=== PATIENT | female | born 1935 | race Caucasian/White ===

== ENCOUNTER 2016-09-07 10:58 | Inpatient (IN) | payer MEDICARE, OTHER ==
[~2016-09-07] VITALS: Ht 156.2 cm; Wt 56.1 kg
[~2016-09-07 10:58] MED LIST: ALBU8.5H3 INH; LEVO50TA5 PO; PROP150T2 PO; SIMV10TA3 PO
[2016-09-07] MEDS ORDERED: BUPIVACAINE/PF-EPI 0.5% 1:200K ONE (11:49)
[2016-09-07] MEDS ORDERED: BACITRACIN OINT 500U/GM, 15 GM ONE (11:49)
[2016-09-07] MEDS ORDERED: BACITRACIN 50,000 UNIT ONE (11:50)
[2016-09-07] MEDS ORDERED: THROMBIN 5,000 UNIT VIAL TP ONE (11:50)
[2016-09-07] MEDS ORDERED: NEOSPORIN OINT, 15GM ONE (12:00)
[2016-09-07] MEDS ORDERED: FENTANYL PF 250 MCG/5ML ONE (13:05)
[2016-09-07] MEDS ORDERED: morphine SULFATE 10 MG/ML, 1ML IVPush PRN (13:30)
[2016-09-07] MEDS ORDERED: TEMPLATE NON-FORMULARY MED. (Albuterol Sulfate (Proair Hfa) 1 PUFF) INH SCH (13:30)
[2016-09-07] MEDS ORDERED: ONDANSETRON 2MG/ML, 2ML IVPush PRN ×2 (13:30→14:00)
[2016-09-07] MEDS ORDERED: PHARMACY MAY ADJ FOR RENAL FX MC PRN (13:30)
[2016-09-07] MEDS ORDERED: MAGNESIUM HYDROXIDE 8%, 30ML UDC PO PRN (13:30)
[2016-09-07] MEDS ORDERED: DIPHENHYDRAMINE 50 MG/ML, 1ML IVPush PRN (13:30)
[2016-09-07] MEDS ORDERED: BISACODYL 10 MG SUPP PR PRN (13:30)
[2016-09-07] MEDS ORDERED: PROPAFENONE 150 MG TABLET PO SCH (13:30)
[2016-09-07] MEDS ORDERED: METHOCARBAMOL 750 MG TABLET PO PRN (13:30)
[2016-09-07] MEDS ORDERED: SENNA/DOCUSATE TABLET PO PRN (13:30)
[2016-09-07] MEDS ORDERED: OXYcodone 5 MG/5 ML ORAL.SOL UDC PO PRN (14:00)
[2016-09-07] MEDS ORDERED: ALBUTEROL SULFATE 2.5 MG/3 ML NPPB PRN (14:00)
[2016-09-07] MEDS ORDERED: METOPROLOL 1 MG/ML, 5ML IV PRN (14:00)
[2016-09-07] MEDS ORDERED: EPHEDRINE 50 MG/ML, 1ML IVPush PRN (14:00)
[2016-09-07] MEDS ORDERED: LABETALOL 5MG/ML, 20ML IV PRN (14:00)
[2016-09-07] MEDS ORDERED: ACETAMINOPHEN 325 MG TABLET PO PRN (14:00)
[2016-09-07] MEDS ORDERED: hydrALAzine 20 MG/ML, 1ML IV PRN (14:00)
[2016-09-07] MEDS ORDERED: FENTANYL PF 100 MCG/2ML ONE (15:40)
[2016-09-07] MEDS ORDERED: ACETAMINOPHEN 650 MG/20.3 ML UDC ONE (15:40)
[2016-09-07] MEDS ORDERED: OXYcodone 5 MG/5 ML ORAL.SOL UDC ONE (15:41)
[2016-09-07] MEDS: FENTANYL PF 100 MCG/2ML IV PRN ×4 (15:44→16:06)
[2016-09-07] MEDS ORDERED: HYDROmorphone 1 MG/ML, 1ML ONE (16:07)
[2016-09-07] MEDS: HYDROmorphone 1 MG/ML, 1ML IV PRN ×2 (16:12→16:24)
[2016-09-07] MEDS ORDERED: CEFAZOLIN 1,000 MG ONE (16:36)
[2016-09-07] MEDS ORDERED: ONDANSETRON 2MG/ML, 2ML ONE (16:36)
[2016-09-07] MEDS ORDERED: PROPOFOL 10 MG/ML, 20ML ONE (16:36)
[2016-09-07] MEDS ORDERED: GLYCOPYRROLATE 0.2MG/1ML ONE (16:36)
[2016-09-07] MEDS ORDERED: ROCURONIUM 10 MG/ML ONE (16:36)
[2016-09-07] MEDS ORDERED: DEXAMETHASONE 4 MG/ML, 1ML ONE (16:36)
[2016-09-07] MEDS ORDERED: NEOSTIGMINE 1 MG/ML, 10ML ONE (16:36)
[2016-09-07] MEDS: D5%-0.9% NACL+KCL 20MEQ 1,000 ML IV SCH (17:16)
[2016-09-07 19:42] VITALS: BP 137/70
[2016-09-07] MEDS: OXYcodone/APAP 5/325MG TABLET PO PRN ×2 (19:48→23:46)
[2016-09-07] MEDS: SIMVASTATIN 10 MG TABLET PO SCH (20:47)
[2016-09-07] MEDS: CEFAZOLIN PMX 1GM/50ML 50 ML IVPB SCH (20:47)
[2016-09-08 01:00] VITALS: BP 136/44
[2016-09-08 03:00] VITALS: BP 113/50
[2016-09-08] MEDS: D5%-0.9% NACL+KCL 20MEQ 1,000 ML IV SCH ×2 (03:25→21:13)
[2016-09-08] MEDS: CEFAZOLIN PMX 1GM/50ML 50 ML IVPB SCH (04:50)
[2016-09-08] MEDS: OXYcodone/APAP 5/325MG TABLET PO PRN ×4 (06:23→21:14)
[2016-09-08] MEDS ORDERED: SODIUM CHLORIDE 0.9%, 500ML IVBOLUS ONE (07:00)
[2016-09-08 08:25] VITALS: BP 128/84
[2016-09-08] MEDS: LEVOTHYROXINE 50 MCG TABLET PO SCH (08:28)
[2016-09-08 14:38] VITALS: BP 94/40
[2016-09-08] MEDS ORDERED: DEXAMETHASONE 4 MG/ML, 1ML IVPush ONE (15:30)
[2016-09-08 20:29] VITALS: BP 119/53
[2016-09-08] MEDS: SIMVASTATIN 10 MG TABLET PO SCH (21:13)
[2016-09-09 02:07] VITALS: BP 115/51
[2016-09-09] MEDS: OXYcodone/APAP 5/325MG TABLET PO PRN ×3 (02:11→19:34)
[2016-09-09] MEDS: D5%-0.9% NACL+KCL 20MEQ 1,000 ML IV SCH ×3 (06:00→20:00)
[2016-09-09 07:33] VITALS: BP 125/56
[2016-09-09] MEDS ORDERED: DEXAMETHASONE 4 MG/ML, 1ML IVPush ONE (08:00)
[2016-09-09] MEDS: LEVOTHYROXINE 50 MCG TABLET PO SCH (10:26)
[2016-09-09 14:05] VITALS: BP 160/73
[2016-09-09 15:11] VITALS: BP 147/56
[2016-09-09 19:24] VITALS: BP 126/57
[2016-09-09] MEDS: SIMVASTATIN 10 MG TABLET PO SCH (21:56)
[2016-09-10 02:19] VITALS: BP 141/66
[2016-09-10] MEDS: OXYcodone/APAP 5/325MG TABLET PO PRN ×4 (02:30→20:33)
[2016-09-10] MEDS: D5%-0.9% NACL+KCL 20MEQ 1,000 ML IV SCH ×2 (06:00→16:00)
[2016-09-10] MEDS: LEVOTHYROXINE 50 MCG TABLET PO SCH (08:25)
[2016-09-10 08:26] VITALS: BP 126/64
[2016-09-10] MEDS ORDERED: DEXAMETHASONE 4 MG/ML, 5ML IVPush ONE (08:30)
[2016-09-10 13:49] VITALS: BP 142/55
[2016-09-10] MEDS ORDERED: RIVA20TA PO (15:03)
[2016-09-10 18:52] VITALS: BP 141/61
[2016-09-10] MEDS: SIMVASTATIN 10 MG TABLET PO SCH (20:33)
[2016-09-11] MEDS: D5%-0.9% NACL+KCL 20MEQ 1,000 ML IV SCH ×3 (02:00→20:09)
[2016-09-11 03:29] VITALS: BP 133/66
[2016-09-11] MEDS: OXYcodone/APAP 5/325MG TABLET PO PRN ×3 (03:58→14:38)
[2016-09-11 09:30] VITALS: BP 122/65
[2016-09-11] MEDS: LEVOTHYROXINE 50 MCG TABLET PO SCH (09:39)
[2016-09-11 13:41] VITALS: BP 125/57
[2016-09-11 19:31] VITALS: BP 134/70
[2016-09-11] MEDS: SIMVASTATIN 10 MG TABLET PO SCH (20:09)
[2016-09-12 02:20] VITALS: BP 134/68
[2016-09-12 08:00] VITALS: BP 134/73
[2016-09-12] MEDS: D5%-0.9% NACL+KCL 20MEQ 1,000 ML IV SCH ×2 (08:00→18:00)
[2016-09-12] MEDS: OXYcodone/APAP 5/325MG TABLET PO PRN ×3 (08:55→16:39)
[2016-09-12] MEDS: LEVOTHYROXINE 50 MCG TABLET PO SCH (08:55)
[2016-09-12 16:48] VITALS: BP 150/69
[2016-09-12 20:37] VITALS: BP 120/62
[2016-09-12] MEDS: SIMVASTATIN 10 MG TABLET PO SCH (20:58)
[2016-09-12] MEDS ORDERED: PROPAFENONE 150 MG TABLET PO SCH (21:00)
[2016-09-12] MEDS ORDERED: RIVAROXABAN 20 MG TABLET PO SCH (21:00)
[2016-09-12 21:11] VITALS: BP 144/70
[2016-09-13] MEDS: OXYcodone/APAP 5/325MG TABLET PO PRN ×3 (00:25→11:55)
[2016-09-13 02:45] VITALS: BP 132/67
[2016-09-13] MEDS: D5%-0.9% NACL+KCL 20MEQ 1,000 ML IV SCH ×2 (04:00→14:00)
[2016-09-13 08:14] VITALS: BP 137/70
[2016-09-13] MEDS ORDERED: PROPAFENONE 150 MG TABLET PO SCH (09:00)
[2016-09-13] MEDS: LEVOTHYROXINE 50 MCG TABLET PO SCH (09:12)
[2016-09-13 13:38] VITALS: BP 113/56
[2016-09-13 14:55] VITALS: BP 135/61
== END 2016-09-13 15:15 | DRG 516 ==
LOC: OUT 10:58 → ORIP 13:15 → 4NOR 17:14 → OBSVTOIN 09-08 14:21
PROVIDERS: ADMIT Orthopaedic Surgery Orthopaedic Surgery of the Spine; ATTEND Orthopaedic Surgery Orthopaedic Surgery of the Spine
PROC: 4A11X4G Monitoring of Peripheral Nervous Electrical Activity, Intraoperative, External Approach (ICD-10-PCS; 2016-09-07)
PROC: 01NR0ZZ Release Sacral Nerve, Open Approach (ICD-10-PCS; 2016-09-07)
PROC: 01NB0ZZ Release Lumbar Nerve, Open Approach (ICD-10-PCS; principal; 2016-09-07 13:00)
DX: M48.06 Spinal stenosis, lumbar region (principal); M47.16 Other spondylosis with myelopathy, lumbar region; M48.07 Spinal stenosis, lumbosacral region; J45.909 Unspecified asthma, uncomplicated; M19.90 Unspecified osteoarthritis, unspecified site; M54.16 Radiculopathy, lumbar region; Z79.01 Long term (current) use of anticoagulants
CPT/HCPCS: 72100; 72148; G0378; J0690; J1100; J1170; J2405; J2704; J2710; J3010; J3490; J3480; J7040